=== PATIENT | female | born 1945 | race Caucasian/White ===

== ENCOUNTER 2016-08-23 08:15 | Day surgery (SDC) | payer MEDICARE, OTHER ==
[~2016-08-23] VITALS: Ht 157.5 cm; Wt 73.6 kg
[2016-08-23 09:20] VITALS: Ht 157.5 cm; Wt 73.6 kg
[2016-08-23] MEDS ORDERED: GLIP5TAB13 PO (09:29)
[2016-08-23] MEDS ORDERED: ATOR10TA65 PO (09:29)
[2016-08-23 09:30] VITALS: BP 173/81; PULSE 82; RESP 14
[2016-08-23] MEDS ORDERED: PROPOFOL 20 ML ONE (09:38)
[2016-08-23] MEDS ORDERED: LIDOCAINE 2% (SDV) 5 ML INJ ONE (09:39)
[2016-08-23 10:28] VITALS: BP 154/80; PULSE 75; RESP 24
--- NOTE | 2016-08-23 12:05 | GILP ---
DATE OF PROCEDURE: 08/23/2016 NAME OF PROCEDURE: Colonoscopy. SURGEON: Shady Jean-Baptiste MD PREOPERATIVE DIAGNOSIS: Screening colonoscopy. POSTOPERATIVE DIAGNOSES: 1. Colonoscopy all the way to the cecum. 2. Internal hemorrhoids. 3. No colon neoplasm was identified. INDICATION FOR THE PROCEDURE: Ms. Luz Maria Yuen is a 70-year-old female patient who was scheduled for screening colonoscopy. The procedure and possible complications were well explained to the patient. The patient understood and consented to the procedure. DESCRIPTION OF PROCEDURE: Under the influence of anesthesia, the colonoscope was carefully introduc ed in the rectum and under direct vision, it was advanced all the way to the cecum. FINDINGS: The patient had internal hemorrhoids. The patient also had diverticulosis of the colon. No colon neoplasm was identified. She tolerated the procedure very well and there was no complication from the procedure. At the end of the procedure, she was awake with stable vital signs and she was discharged home to the care of h er family. IMPRESSION: 1. Colonoscopy all the way to the cecum. 2. Diverticulosis of the colon. 3. Internal hemorrhoids. 4. No colon neoplasm was identified. PLAN: The patient will not need another screening colonoscopy. Dictated By: SHADY CA/KRISTI Conf#: [id number] DID#: [id number]
== END 2016-08-23 14:12 | disposition home or self-care (01) ==
LOC: GIL 08:15
PROVIDERS: ATTEND Internal Medicine Gastroenterology
DX: Z12.11 Encounter for screening for malignant neoplasm of colon (principal); K64.8 Other hemorrhoids; I10 Essential (primary) hypertension; E11.9 Type 2 diabetes mellitus without complications; E78.5 Hyperlipidemia, unspecified
CPT/HCPCS: 82962; G0121

== ENCOUNTER 2017-05-16 14:32 | Inpatient (IN) | payer OTHER, MEDICAID ==
[~2017-05-16] VITALS: Ht 157.5 cm; Wt 72.1 kg
[~2017-05-16 14:32] MED LIST: ATOR10TA65 PO; GLIP5TAB13 PO
[2017-05-16] MEDS ORDERED: FER325 PO (21:05)
[2017-05-16] MEDS ORDERED: GLIP1TAB6 PO (21:06)
[2017-05-16] MEDS ORDERED: SULF1TAB31 PO (21:06)
[2017-05-16] MEDS ORDERED: TYL500 PO (21:07)
[2017-05-16] MEDS ORDERED: INSU100I33 SC (21:16)
[2017-05-16] MEDS ORDERED: PIPER-TAZO 3.375 GM IV (PMX) 100 ML IVPB STA (21:37)
[2017-05-16] MEDS ORDERED: SOD CHLORIDE 0.9% 1,000 ML IV ONE (22:00)
[2017-05-16] MEDS ORDERED: HYDROCODONE/APAP (5/325) TAB PO ONE (22:00)
[2017-05-16] MEDS ORDERED: VANCOMYCIN 1 GM (PMX) 250 ML IVPB ONE (22:00)
[2017-05-16 22:37] LABS: ADD UMIC NO; UR ASCORBIC ACID 40 mg/dL (NEGATIVE); UR BILIRUBIN (Dip) NEGATIVE (NEGATIVE); UR BLOOD (Dip) NEGATIVE (NEGATIVE); UR CLARITY CLEAR (CLEAR); UR COLOR YELLOW (YELLOW); UR GLUCOSE (Dip) NEGATIVE (NEGATIVE); UR KETONES (Dip) NEGATIVE (NEGATIVE); UR LEUKOCYTE ESTERASE (Dip) NEGATIVE Leu/ul (NEGATIVE); UR NITRITE (Dip) NEGATIVE (NEGATIVE); UR SPECIFIC GRAVITY (Dip) 1.017 (1.003-1.030); UR TOTAL PROTEIN (Dip) NEGATIVE (NEGATIVE); UR UROBILINOGEN (Dip) NEGATIVE (NEGATIVE)
[2017-05-16 23:22] LABS: BASOPHILS % 0.5 % (0.0-2.0); EOSINOPHILS # 0.2 10^3/ul (0.0-0.5); EOSINOPHILS % 2.9 % (0.0-7.0); HEMATOCRIT 29.3 % (37.0-47.0); HEMOGLOBIN 9.5 g/dl (12.0-16.0); LYMPHOCYTES # 1.4 10^3/ul (0.8-2.9); LYMPHOCYTES % 17.7 % (15.0-51.0); MEAN CORPUSCULAR HEMOGLOBIN 26.7 pg (29.0-33.0); MEAN CORPUSCULAR HGB CONC 32.4 g/dl (32.0-37.0); MEAN CORPUSCULAR VOLUME 82.3 fl (82.0-101.0); MEAN PLATELET VOLUME 8.5 fl (7.4-10.4); MONOCYTE # 0.9 10^3/ul (0.3-0.9); MONOCYTES % 11.1 % (0.0-11.0); NEUTROPHIL # 5.4 10^3/ul (1.6-7.5); NEUTROPHILS % 67.4 % (39.0-77.0); PLATELET COUNT 407 10^3/UL (140-415); RED BLOOD COUNT 3.56 10^6/ul (4.20-5.40); RED CELL DISTRIBUTION WIDTH 16.8 % (11.5-14.5)
--- NOTE | 2017-05-16 23:27 | ERA ---
ER Documentation Chief Complaint Date/Time DATE: 05/16/17 TIME: 23:21 Chief Complaint left ankle ulcer s/p hit foot with vaccum 2wks ago HPI This 71-year-old female presents with increasing pain and redness at her left lateral ankle now moving circumferentially all around her whole left ankle and lower leg. At home she has had fevers on and off though she did not check the temperature. Primary care doctor gave her Bactrim of which the core she is Willian finished infection is still spreading. She is diabetic. Is having some serous drainage from the ulcer and some of the drainage has thicker and had a yellowish tinge to it. ROS All systems reviewed and are negative except as per history of present illness. Medications Home Meds Reported Medications Insulin Glargine,Hum.rec.anlog (Basaglar Kwikpen U-100) 100 Unit/1 Ml Insuln.pen , 15 UNIT SC DAILY 05/16/17 Acetaminophen* (Tylenol*) 500 Mg Tab, 500 MG PO QID Y for MILD PAIN LEVEL 1-3, TAB 05/16/17 Glipizide/Metformin HCl (Glipizide-Metformin 5-500 mg) 1 Each Tablet, 1 EACH PO TID, TAB 05/16/17 Sulfamethoxazole/Trimethoprim* (Bactrim Ds* Tablet) 1 Each Tablet, 1 TAB PO BID , TAB 05/16/17 Ferrous Sulfate* (Ferrous Sulfate*) 325 Mg Tabec, 325 MG PO DAILY, TAB 05/16/17 Discontinued Reported Medications Atorvastatin Calcium (Atorvastatin Calcium) 10 Mg Tablet, 10 MG PO QHS, #30 TAB 08/23/16 Glipizide* (Glipizide*) 5 Mg Tablet, 5 MG PO BID, TAB 08/23/16 Allergies Allergies: Coded Allergies: No Known Allergy (Unverified , 05/16/17) PMhx/Soc History of Surgery: Yes (hysterectomy 30yrs ago) Anesthesia Reaction: No Hx Neurological Disorder: No Hx Respiratory Disorders: No Hx Cardiac Disorders: No Hx Psychiatric Problems: No Hx Miscellaneous Medical Probl: Yes (HTN, DM) Hx Alcohol Use: No Hx Substance Use: No Hx Tobacco Use: No Smoking Status: Never smoker Physical Exam Vitals Vital Signs Date Time Temp Pulse Resp B/P Pulse Ox O2 Delivery O2 Flow Rate FiO2 05/16/17 14:37 98.1 104 20 145/68 98 Physical Exam Const: [] Mild distress Eyes: Normal Conjunctiva ENT: Normal External Ears, Nose and Mouth. Neck: Full range of motion..~ No meningismus. No JVD Resp: Clear to auscultation bilaterally Cardio: Regular rate and rhythm, no murmurs Abd: Soft, non tender, non distended. Normal bowel sounds Back: No midline or flank tenderness Ext: No cyanosis, mild bilateral edema with increased left lower extremity edema with some circumferential erythema to the lower leg mild calor. Bilateral distal pulses intact. Neur: Awake and alert and oriented 3, no focal deficits Psych: Normal Mood and Affect Results 24 hrs Laboratory Tests Test 05/16/17 21:24 05/16/17 22:30 Urine Color YELLOW Urine Clarity CLEAR Urine pH 5.0 Urine Specific [place] 1.017 Urine Ketones NEGATIVEmg/dL Urine Nitrite NEGATIVEmg/dL Urine Bilirubin NEGATIVEmg/dL Urine Urobilinogen NEGATIVEmg/dL Urine Leukocyte Esterase NEGATIVELeu/ul Urine Hemoglobin NEGATIVEmg/dL Urine Glucose NEGATIVEmg/dL Urine Total Protein NEGATIVEmg/dl White Blood Count Pending Red Blood Count Pending Hemoglobin Pending Hematocrit Pending Mean Corpuscular Volume Pending Mean Corpuscular Hemoglobin Pending Mean Corpuscular Hemoglobin Concent Pending Red Cell Distribution Width Pending Platelet Count Pending Mean Platelet Volume Pending Current Medications Medications (Trade) Dose Ordered Sig/Idania Route PRN Reason Start Time Stop Time Status Last Admin Dose Admin Vancomycin HCl 250 ml @ 125 mls/hr ONCE ONCE IVPB 05/16/17 22:00 05/16/17 23:59 05/16/17 22:56 Piperacillin Sod/ Tazobactam Sod 100 ml @ 100 mls/hr ONCE STAT IVPB 05/16/17 21:37 05/16/17 22:36 DC 05/16/17 22:01 Sodium Chloride (NS) 1,000 ml @ 1,000 mls/hr Q1H ONCE IV 05/16/17 22:00 05/16/17 22:59 DC 05/16/17 22:03 Acetaminophen/ Hydrocodone Bitart ([place] (5/325)) 1 tab ONCE ONCE PO 05/16/17 22:00 05/16/17 22:01 DC 05/16/17 22:01 Procedures/MDM Left lower extremity and diabetic patient failed outpatient treatment. She will be need to be admitted for IV antibiotics. She was given vancomycin and Zosyn as well as liter of normal saline. Normocytic anemia. Had very mild tachycardia on arrival does not have any other sepsis criteria. Was given a [place] for her pain. Departure Diagnosis: Primary Impression: Diabetic foot infection Additional Impressions: Failure of outpatient treatment Cellulitis of left lower extremity Condition: Stable JARAD GILL DO May 16, 2017 23:27
[2017-05-16 23:46] LABS: ALBUMIN 3.6 g/dl (3.3-4.9); ALBUMIN/GLOBULIN RATIO 0.83; BILIRUBIN,INDIRECT 0.1 mg/dl (0-1.1); BILIRUBIN,TOTAL 0.1 mg/dl (0.2-1.3); CALCIUM 9.1 mg/dl (8.4-10.2); CREATININE 0.94 mg/dl (0.44-1.00); POTASSIUM 4.4 mmol/L (3.5-5.1); TOTAL PROTEIN 7.9 g/dl (6.1-8.1)
[2017-05-17] MEDS ORDERED: ACETAMINOPHEN 325 MG TAB PO PRN ×2 (00:30→01:00)
[2017-05-17] MEDS ORDERED: ONDANSETRON 4 MG INJ IV PRN (00:30)
[2017-05-17] MEDS ORDERED: GLUCOSE GEL 15 GRAM TUBE BUCCAL PRN (01:00)
[2017-05-17] MEDS ORDERED: GLUCAGON 1 MG INJ IM PRN (01:00)
[2017-05-17] MEDS ORDERED: VANCOMYCIN IV PER PHARMACY XX SCH (01:00)
[2017-05-17] MEDS ORDERED: GLUCOSE GEL 15 GRAM TUBE PO PRN ×2 (01:00)
[2017-05-17] MEDS ORDERED: ZOLPIDEM 5 MG TAB PO PRN (01:00)
[2017-05-17] MEDS ORDERED: DEXTROSE 50% 50 ML SYRINGE IV PRN ×2 (01:00)
--- NOTE | 2017-05-17 01:46 | RADRPT ---
PROCEDURE: XR Left Ankle. CLINICAL INDICATION: Osteomyelitis. TECHNIQUE: AP, oblique and lateral views of the left ankle were performed. COMPARISON: None. FINDINGS: There is normal mineralization and alignment. No acute fracture or osseous lesion is identified. The joints are normal. Dystrophic calcifications in the skin over the leg suggest a vascular insufficiency. Soft tissue swe lling over the anterior and bilateral left ankle. Otherwise, the soft tissues are unremarkable. Plan tar and posterior dorsal calcaneal enthesophytes. IMPRESSION: No plain film evidence of osteomyelitis, and MRI examination may be of further use. RPTAT: UU Physician Subha Date Time Electronically viewed and signed by Physician Subha on 05/17/2017 01:46 RS/
[2017-05-17] MEDS ORDERED: ACCU-CHEK XX SCH (02:00)
[2017-05-17] MEDS: ACCU-CHEK XX SCH ×3 (02:00→21:49)
[2017-05-17 02:50] VITALS: Ht 157.5 cm; Wt 72.1 kg
[2017-05-17 03:05] VITALS: BP 159/76; RESP 18
[2017-05-17 04:00] VITALS: BP 159/76; PULSE 71; RESP 18
[2017-05-17] MEDS: HYDROCODONE/APAP (5/325) TAB PO PRN ×3 (05:25→22:55)
[2017-05-17] MEDS ORDERED: PIPER-TAZO 3.375 GM IV (PMX) 100 ML IVPB ONE (06:00)
[2017-05-17 08:00] VITALS: BP 126/57; RESP 16
[2017-05-17] MEDS ORDERED: INSULIN ASPART [NOVOLOG] 3 ML PEN SC SCH ×4 (08:00→11:30)
[2017-05-17 08:04] LABS: BASOPHIL # 0.1 10^3/ul (0.0-0.1); BASOPHILS % 0.9 % (0.0-2.0); EOSINOPHILS # 0.2 10^3/ul (0.0-0.5); EOSINOPHILS % 3.5 % (0.0-7.0); HEMATOCRIT 28.3 % (37.0-47.0); HEMOGLOBIN 9.2 g/dl (12.0-16.0); LYMPHOCYTES # 1.6 10^3/ul (0.8-2.9); LYMPHOCYTES % 23.4 % (15.0-51.0); MEAN CORPUSCULAR HEMOGLOBIN 26.6 pg (29.0-33.0); MEAN CORPUSCULAR HGB CONC 32.5 g/dl (32.0-37.0); MEAN CORPUSCULAR VOLUME 81.8 fl (82.0-101.0); MEAN PLATELET VOLUME 8.6 fl (7.4-10.4); MONOCYTE # 0.7 10^3/ul (0.3-0.9); MONOCYTES % 9.8 % (0.0-11.0); NEUTROPHIL # 4.1 10^3/ul (1.6-7.5); NEUTROPHILS % 62.1 % (39.0-77.0); PLATELET COUNT 418 10^3/UL (140-415); RED BLOOD COUNT 3.46 10^6/ul (4.20-5.40); RED CELL DISTRIBUTION WIDTH 16.9 % (11.5-14.5); WHITE BLOOD COUNT 6.6 10^3/ul (4.8-10.8)
[2017-05-17 08:27] LABS: CALCIUM 8.9 mg/dl (8.4-10.2); CHOL/HDL RATIO 4.5 RATIO; CREATININE 0.87 mg/dl (0.44-1.00); POTASSIUM 4.7 mmol/L (3.5-5.1)
[2017-05-17] MEDS: FERROUS SULFATE (EC) 325 MG TAB PO SCH (08:35)
[2017-05-17] MEDS: INSULIN ASPART [NOVOLOG] 3 ML PEN SC SCH ×6 (08:39→21:00)
[2017-05-17] MEDS: INSULIN GLARGINE [LANtus] 3 ML PEN SC SCH (08:40)
[2017-05-17] MEDS: metFORMIN 500 MG TAB PO SCH ×3 (08:42→17:22)
[2017-05-17] MEDS ORDERED: GLIPIZIDE PO SCH (09:00)
[2017-05-17] MEDS ORDERED: METFORMIN HCL PO SCH (09:00)
[2017-05-17] MEDS ORDERED: glipiZIDE 5 MG TAB PO SCH (09:00)
[2017-05-17] MEDS ORDERED: [UNRECOGNIZED DRUG - OTHER] PO SCH (09:00)
[2017-05-17] MEDS ORDERED: VANCOMYCIN 1 GM in NS 250 ML IVPB SCH (11:00)
--- NOTE | 2017-05-17 11:54 | HP ---
Date/Time of Note Date/Time of Note DATE: 05/17/17 TIME: 11:34 Assessment/Plan VTE Prophylaxis VTE Prophylaxis Intervention: LMWH Lines/Catheters IV [facility] [place] Assessment/Plan Assessment/Plan 71-year-old female: 1. Left ankle diabetic ulcer, infected, adjacent cellulitis. Rule out osteomyelitis. MRI left ankle has been done, results pending. ESR pending. Continue vancomycin, Levaquin added. Podiatry and infectious disease consult. A1c of 9.1 2. Diabetes mellitus, A1c of 9.1, patient reports that her blood sugars have been running high over the past couple of weeks with ongoing infection. Continue current regimen, pre-meal insulin has been added. Continue metformin for now. Hold glipizide per [facility] protocol. Will adjust insulin regimen as needed. 3. Hypertension, monitor blood pressure, resume outpatient medications as needed. 4. Hyperlipidemia: Check fasting lipid panel, resume statin therapy. Prophylaxis: Lovenox for DVT prophylaxis, Pepcid for GI prophylaxis Disposition: ID and podiatry consult, MRI done results pending, continue current antibiotics. HPI/ROS Admit Date/Time Admit Date/Time May 17, 2017 at 00:27 Hx of Present Illness Chief complaint: left ankle nonhealing ulcer and redness History of presenting illness: 71-year-old female with history of hypertension, hyperlipidemia, diabetes mellitus and recent acute onset of a diabetic ulcer on the left medial ankle for at least the past 2 weeks, seems to have failed Bactrim therapy as an outpatient. She presented to the emergency department with a draining ulceration on her left medial ankle area and significant erythema and cellulitic changes surrounding it. Patient reports 3 days of fevers chills and dizziness approximately 2 weeks ago , followed by acute onset of ulceration/boil on her left medial ankle, she reports that when she would walk on it it would get bigger, this went on for at least a week, she also noted erythema around the site, she saw her primary care physician who started her on Bactrim, she completed 1 week course of it. 2 days ago, the boil opened up started draining and the ulceration was not healing therefore she came to the emergency department. She has been afebrile over the past week, she stopped taking her antihypertensive and anticholesterol medication, because of her episode of dizziness before and she felt like she was taking too many medications In the emergency department, x-ray of the left ankle was done, she was started on vancomycin along with Zosyn, I have seen her this morning, MRI is ordered along with ESR. Levaquin and vancomycin for antibiotic treatment. Podiatry consult. ROS Constitutional: no complaints Eyes: no complaints Respiratory: no complaints Cardiovascular: no complaints Gastrointestinal: no complaints Musculoskeletal: swelling (Edema left lower extremity.) Skin: skin lesions (Patient has an ulceration which is covered with a dressing currently, left medial ankle. Erythema surrounds it up to lower third of her left lower extremity, ipsilateral to the nonhealing ulcer) Neurologic: no complaints Endocrine: no complaints Lymphatic: no complaints Psychological: no complaints PMH/Family/Social Past Medical History Diabetes mellitus, insulin requiring. Hypertension, stopped medications for a week now at least. Hyperlipidemia, stopped medication for week at least Past Surgical History Status post hysterectomy remotely Family History Significant Family History: no pertinent family hx Social History Alcohol Use: none Smoking Status: Never smoker Drug Use: none Exam/Review of Systems Vital Signs Vitals Vital Signs Date Time Temp Pulse Resp B/P Pulse Ox O2 Delivery O2 Flow Rate FiO2 05/17/17 08:00 97.9 72 16 126/57 97 05/17/17 04:00 Room Air Intake and Output 05/16/17 05/16/17 05/17/17 15:00 23:00 07:00 Intake Total 200 ml Balance 200 ml Exam Constitutional: alert, oriented, well developed Respiratory: clear to auscultation, normal air movement Cardiovascular: nl pulses, regular rate and rhythm Musculoskeletal: nl gait and stance, other (Patient has an ulceration which is covered with a dressing currently, left medial ankle. Erythema surrounds it up to lower third of her left lower extremity, ipsilateral to the nonhealing ulcer) , swelling (Lower extremity) Extremities: normal pulses, other (No clubbing or cyanosis) Neurological: [employer] II-XII intact, nl mental status, nl speech Labs Result Diagram: 05/17/1746 05/17/17 0646 Medications Medications Current Medications Acetaminophen (Tylenol Tab) 650 mg Q6 PRN PO FEVER GREATER THAN 100.6; Start 05/17/17 at 01:00 Acetaminophen/ Hydrocodone Bitart ([place] (5/325)) 1 tab Q6 PRN PO pain Last administered on 05/17/17 05:25; Admin Dose 1 TAB; Start 05/17/17 at 01:00 Ferrous Sulfate (Ferrous Sulfate (Ec)) 325 mg DAILY PO Last administered on 08:35; Admin Dose 325 MG; Start 05/17/17 at 09:00 Insulin Glargine (Lantus) 15 unit DAILY SC Last administered on 05/17/17 08: 40; Admin Dose 15 UNIT; Start 05/17/17 at 09:00 Diagnostic Test (Pha) (Accu-Chek) 1 ea 02 XX ; Start 05/17/17 at 02:00 Miscellaneous Information 1 ea NOTE XX ; Start 05/17/17 at 01:00 Glucose (Glutose) 15 gm Q15M PRN PO DECREASED GLUCOSE; Start 05/17/17 at 01:00 Glucose (Glutose) 22.5 gm Q15M PRN PO DECREASED GLUCOSE; Start 05/17/17 at 01: 00 Dextrose (D50w Syringe) 25 ml Q15M PRN IV DECREASED GLUCOSE; Start 05/17/17 at 01:00 Dextrose (D50w Syringe) 50 ml Q15M PRN IV DECREASED GLUCOSE; Start 05/17/17 at 01:00 Glucagon (Glucagen) 1 mg Q15M PRN IM DECREASED GLUCOSE; Start 05/17/17 at 01: 00 Glucose 15 gm 15 gm Q15M PRN BUCCAL DECREASED GLUCOSE; Start 05/17/17 at 01:00 Vancomycin HCl (Vancocin) 250 ml @ 125 mls/hr Q24H IVPB ; Start 05/17/17 at 11 :00 Influenza Virus Vaccine (Fluzone) 0.5 ml ONCE ONCE IM* ; Start 05/18/17 at 09: 00; Stop 05/18/17 at 09:01 Diagnostic Test (Pha) 1 ea 1 ea 02 XX ; Start 05/18/17 at 02:00 Levofloxacin/ Dextrose (Levaquin 750 Mg/ D5W 150 ml (Pmx)) 150 ml @ 100 mls/hr Q48H IVPB ; Start 05/17/17 at 10:45 Lactobacillus Acidophilus/ Rhamnosus (Culturelle) 1 cap BID PO ; Start at 10:30 Procedures Procedures PROCEDURE: XR Left Ankle. CLINICAL INDICATION: Osteomyelitis. TECHNIQUE: AP, oblique and lateral views of the left ankle were performed. COMPARISON: None. FINDINGS: There is normal mineralization and alignment. No acute fracture or osseous lesion is identified. The joints are normal. Dystrophic calcifications in the skin over the leg suggest a vascular insufficiency. Soft tissue swelling over the anterior and bilateral left ankle. Otherwise, the soft tissues are unremarkable. Plantar and posterior dorsal calcaneal enthesophytes. IMPRESSION: No plain film evidence of osteomyelitis, and MRI examination may be of further use. RPTAT: UU Physician Subha Date Time Electronically viewed and signed by Physician Subha on 05/17/2017 01:46 LATASHA/ IVY SHIPMAN May 17, 2017 11:45
[2017-05-17] MEDS: LEVOFLOXACIN 750MG/D5W (PMX) 150 ML IVPB SCH (12:21)
[2017-05-17] MEDS: ENOXAPARIN 40 MG/0.4 ML SYG SC SCH (12:32)
[2017-05-17] MEDS: LACTOBACILLUS RHAMNOSUS CAP PO SCH ×2 (12:33→21:45)
[2017-05-17] MEDS: FAMOTIDINE 20 MG TAB PO SCH (12:34)
[2017-05-17 14:19] VITALS: BP 119/65; RESP 16
--- NOTE | 2017-05-17 14:20 | CONS ---
DATE OF ADMISSION: 05/17/2017 DATE OF CONSULTATION: 05/17/2017 TYPE OF CONSULTATION: Infectious Disease. REASON FOR CONSULTATION: Antibiotic management. HISTORY OF PRESENT ILLNESS: Luz Maria Yuen is a 71-year-old female who comes in with left ankle diabetic ulcer infected with adjacent cellulitis. Her past problems include: 1. Adult-onset diabetes mellitus, insulin requiring. 2. Hypertension. 3. Hyperlipidemia. 4. Status post hysterectomy in the remote past. 5. Diabetic foot ulcer of the left ankle. The patient had recent acute onset of diabetic ulcer of the left medial ankle for the last 2 weeks. She failed Bactrim therapy as an outpatient. She presented to the emergency room with a draining u lceration of the left medial ankle with erythema and cellulitis. She reports that 3 days of fever, chills and dizziness two weeks ago following the acute onset of the ulceration. She noted erythema around the site. She saw her primary doctor who started her on Bactrim and she completed a 1 week c ourse. Two days ago the ulceration opened and started to drain and she came to the emergency room. She stopped taking her antihypertensives and anticholesterol medications because she had dizziness. In the emergency room, an x-ray of the left ankle was done and she was started on vancomycin and Z osyn. MRI is ordered. She is currently on vancomycin and Levaquin. An MRI is pending. There is n o plain film evidence of osteomyelitis. PAST MEDICAL HISTORY: Operations as outlined. FAMILY HISTORY: Noncontributory. SOCIAL HISTORY: She does not smoke, drink or abuse drugs. ALLERGIES: NONE TO PENICILLIN, SULFA OR FOODS. MEDICATIONS: Per chart. REVIEW OF SYSTEMS: As per HPI. PHYSICAL EXAMINATION: GENERAL: She is alert, responsive, in no acute distress. VITAL SIGNS: Stable. She is afebrile. SKIN: Without generalized rash. HEENT: Within normal limits. NECK: Supple. LYMPH NODES: None palpable. CHEST: Decreased breath sounds at the bases. HEART: Without murmur or gallop. ABDOMEN: Soft, nontender, without organosplenomegaly or masses. EXTREMITIES: As noted left ankle diabetic ulcer with surrounding adjacent cellulitis and edema of t he left lower extremity. The erythema extends up to the lower third of the lower extremity. RECTAL AND GENITAL: Deferred. NEUROLOGIC: No focal neurological abnormalities. IMPRESSION AND PLAN: The patient has cellulitis. We have to consider osteomyelitis which is pendin g. Her white count was 6.6, H and H 9.2 and 28.3, platelet count 418,000. BUN and creatinine 11/0. 87. She had blood cultures x2 and wound culture, so we will await the results of these cultures. I will dictate my findings to Dr. Gilbert. Dictated By: LA GALE MD, JD/KRISTI Conf#: [id number] DID#: [id number]
--- NOTE | 2017-05-17 15:34 | RADRPT ---
PROCEDURE: MRI OF THE LEFT ANKLE. CLINICAL INDICATION: Wound on the medial ankle with redness and warmth. TECHNIQUE: Multiple MRI images were obtained utilizing multiple pulse sequences in all three planes . Images were interpreted on high-resolution PACS system. COMPARISON: Same day radiographs FINDINGS: There is soft tissue swelling along the posterior medial aspect of the ankle with a loculated fluid collection measuring up to 3.5 cm AP by 1.3 cm transverse by 2.2 cm cranial-caudal within the subcut aneous soft tissues at the level of the distal tibial metaphysis. The fluid collection extends to th e skin surface although does not extend to the bone. There is no evidence of osteomyelitis within th e ankle. There is no acute fracture or bone marrow edema. The tibiotalar joint is intact. There are no osteoc hondral lesions of the talar dome. There is partial thickness chondral loss within the subtalar join t with mild subchondral marrow edema, subchondral cysts, and osseous spurring. Mild osseous spurring and chondral loss is also present within the calcaneocuboid, talonavicular, and naviculocuneiform j oints. There is a small amount of fluid within the sinus tarsi with edema and infiltration of fat wi thin the sinus tarsi. A small amount of fluid is also present within the subtalar joint. There are n o bony destructive changes within the ankle. The anterior talofibular, calcaneofibular, posterior talofibular, syndesmotic, and deltoid ligaments are intact. There is mild scarring of the deltoid ligament fibers which may be from prior injury. There is also scarring of the spring ligament fibers. There is moderate tendinosis of the distal posterior tibial tendon with thickening and increased sig nal of the tendon fibers distal to the medial malleolus extending to its insertion. The flexor digit orum longus and flexor hallucis longus tendons are intact. The peroneus longus and brevis tendons ar e intact with mild tendinosis of the peroneus longus. The superior peroneal retinaculum is intact. The tibialis anterior and extensor tendons are intact. There is mild to moderate thickening of the Achilles tendon with small enthesophytes within the post erior calcaneus at the tendon insertion. The plantar fascia is intact. There is a small plantar calc aneal heel spur. There is marked fatty atrophy of the abductor digiti minimi muscle. RPTAT: ZZ IMPRESSION: 1. Loculated fluid collection within the superficial subcutaneous soft tissues of the posterior medi al ankle at the level of the distal tibial metaphysis measuring up to 3.5 x 1.3 x 2.2 cm which may c orrespond with an abscess with a small adjacent skin ulcer although limited in evaluation without in travenous contrast. No sinus tract extending from the skin to the bone or evidence for osteomyelitis . 2. Inflammation of the sinus tarsi with infiltration of fat within the sinus tarsi with fluid and ed shelby. 3. 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 4. Moderate distal posterior tibial tendinosis. 5. Marked fatty atrophy of the abductor digiti minimi muscle. .Kalyani Meyer MD, Date Time Electronically viewed and signed by .Kalyani Meyer MD, on 05/17/2017 15:34 .T/
[2017-05-17 20:16] VITALS: BP 120/60; RESP 19
[2017-05-18] MEDS ORDERED: ACCU-CHEK XX SCH (02:00)
[2017-05-18 03:05] VITALS: BP 117/63; RESP 18
[2017-05-18 06:22] LABS: BASOPHIL # 0.1 10^3/ul (0.0-0.1); BASOPHILS % 0.8 % (0.0-2.0); EOSINOPHILS # 0.2 10^3/ul (0.0-0.5); EOSINOPHILS % 2.9 % (0.0-7.0); HEMOGLOBIN 9.1 g/dl (12.0-16.0); LYMPHOCYTES # 1.7 10^3/ul (0.8-2.9); LYMPHOCYTES % 23.8 % (15.0-51.0); MEAN CORPUSCULAR HEMOGLOBIN 25.8 pg (29.0-33.0); MEAN CORPUSCULAR HGB CONC 31.4 g/dl (32.0-37.0); MEAN CORPUSCULAR VOLUME 82.2 fl (82.0-101.0); MEAN PLATELET VOLUME 8.5 fl (7.4-10.4); MONOCYTE # 0.6 10^3/ul (0.3-0.9); MONOCYTES % 8.1 % (0.0-11.0); NEUTROPHIL # 4.6 10^3/ul (1.6-7.5); NEUTROPHILS % 63.7 % (39.0-77.0); PLATELET COUNT 439 10^3/UL (140-415); RED BLOOD COUNT 3.53 10^6/ul (4.20-5.40); RED CELL DISTRIBUTION WIDTH 17.1 % (11.5-14.5); WHITE BLOOD COUNT 7.2 10^3/ul (4.8-10.8)
[2017-05-18 07:19] LABS: CALCIUM 9.2 mg/dl (8.4-10.2); CREATININE 0.91 mg/dl (0.44-1.00); MAGNESIUM 1.8 mg/dl (1.7-2.5); PHOSPHORUS 3.8 mg/dl (2.5-4.9); POTASSIUM 5.2 mmol/L (3.5-5.1)
[2017-05-18] MEDS: INSULIN ASPART [NOVOLOG] 3 ML PEN SC SCH ×7 (08:00→21:00)
[2017-05-18 08:05] VITALS: BP 136/78; RESP 19
[2017-05-18] MEDS: ENOXAPARIN 40 MG/0.4 ML SYG SC SCH (08:14)
[2017-05-18] MEDS: INSULIN GLARGINE [LANtus] 3 ML PEN SC SCH (08:14)
[2017-05-18] MEDS: FAMOTIDINE 20 MG TAB PO SCH (08:16)
[2017-05-18] MEDS: LACTOBACILLUS RHAMNOSUS CAP PO SCH ×2 (08:17→22:00)
[2017-05-18] MEDS: FERROUS SULFATE (EC) 325 MG TAB PO SCH (08:17)
[2017-05-18] MEDS: metFORMIN 500 MG TAB PO SCH ×3 (08:17→17:01)
[2017-05-18] MEDS ORDERED: INFLUENZA VIRUS VACCINE 0.5 ML (DISPENSING) IM* ONE (09:00)
--- NOTE | 2017-05-18 12:04 | PN ---
Date/Time of Note Date/Time of Note DATE: 05/18/17 TIME: 11:57 Assessment/Plan VTE Prophylaxis VTE Prophylaxis Intervention: LMWH Lines/Catheters [facility]from [facility] Saline Lock Assessment/Plan Assessment/Plan 71-year-old female: 1. Left ankle diabetic ulcer, infected, adjacent cellulitis. MRI left ankle with no osteomyelitis however patient does have fluid collection/ abscess underneath the infected ulcer. Podiatry, Dr. Moseley was consulted, he is planning for bedside I&D today. Infectious disease consulted, continue current antibiotics for now while awaiting culture sensitivities Continue vancomycin, Levaquin. 2. Diabetes mellitus, A1c of 9.1, patient reports that her blood sugars have been running high over the past couple of weeks with ongoing infection. Continue current regimen, pre-meal insulin has been added. Continue metformin for now. Blood sugars controlled on current regimen. 3. Hypertension, monitor blood pressure, resume outpatient medications as needed. 4. Hyperlipidemia: Continue statin therapy. Prophylaxis: Lovenox for DVT prophylaxis, Pepcid for GI prophylaxis Disposition: Appreciate ID and podiatry recommendations, bedside I&D of left ankle ulcer with abscess today, further antibiotic adjustment per culture results. Subjective 24 Hr Interval Summary Free Text/Dictation Patient remained stable, doing well, it is noted that there is more drainage from the infected ulcer and on MRI there is area of abscess seen. Podiatry has been consulted, Dr. Moseley has seen the patient and will be doing bedside I&D today. Exam/Review of Systems Vital Signs Vitals Vital Signs Date Time Temp Pulse Resp B/P Pulse Ox O2 Delivery O2 Flow Rate FiO2 05/18/17 08:05 97.7 82 19 136/78 98 05/17/17 04:00 Room Air Intake and Output 05/17/17 05/17/17 05/18/17 15:00 23:00 07:00 Intake Total 150 ml 1530 ml 120 ml Balance 150 ml 1530 ml 120 ml Exam Constitutional: alert, oriented, well developed Respiratory: clear to auscultation, normal air movement Cardiovascular: nl pulses, regular rate and rhythm Gastrointestinal: non-tender, soft Musculoskeletal: nl gait and stance, other (Left ankle cellulitis improved, however draining fluid from a left ankle ulcer can be seen, I&D bedside today with podiatry) Extremities: normal pulses Neurological: HOGSHEAD PACKER II-XII intact, nl mental status, nl speech, nl strength Results Result Diagram: 05/18/17 0548 05/18/17 0548 Results 24 hrs Laboratory Tests Test 05/17/17 12:19 05/17/17 17:21 05/17/17 21:47 05/18/17 05:48 Bedside Glucose 156 80 81 White Blood Count 7.2 Red Blood Count 3.53 L Hemoglobin 9.1 L Hematocrit 29.0 L Mean Corpuscular Volume 82.2 Mean Corpuscular Hemoglobin 25.8 L Mean Corpuscular Hemoglobin Concent 31.4 L Red Cell Distribution Width 17.1 H Platelet Count 439 H Mean Platelet Volume 8.5 Neutrophils % 63.7 Lymphocytes % 23.8 Monocytes % 8.1 Eosinophils % 2.9 Basophils % 0.8 Nucleated Red Blood Cells % 0.0 Neutrophils # 4.6 Lymphocytes # 1.7 Monocytes # 0.6 Eosinophils # 0.2 Basophils # 0.1 Nucleated Red Blood Cells # 0.0 Sodium Level 139 Potassium Level 5.2 H Chloride Level 104 Carbon Dioxide Level 25 Anion Gap 15 Blood Urea Nitrogen 16 Creatinine 0.91 Glucose Level 180 Calcium Level 9.2 Phosphorus Level 3.8 Magnesium Level 1.8 Test 05/18/17 08:02 Bedside Glucose 135 Imaging Free Text/Dictation PROCEDURE: MRI OF THE LEFT ANKLE. CLINICAL INDICATION: Wound on the medial ankle with redness and warmth. TECHNIQUE: Multiple MRI images were obtained utilizing multiple pulse sequences in all three planes. Images were interpreted on high-resolution PACS system. COMPARISON: Same day radiographs FINDINGS: There is soft tissue swelling along the posterior medial aspect of the ankle with a loculated fluid collection measuring up to 3.5 cm AP by 1.3 cm transverse by 2.2 cm cranial-caudal within the subcutaneous soft tissues at the level of the distal tibial metaphysis. The fluid collection extends to the skin surface although does not extend to the bone. There is no evidence of osteomyelitis within the ankle. There is no acute fracture or bone marrow edema. The tibiotalar joint is intact. There are no osteochondral lesions of the talar dome. There is partial thickness chondral loss within the subtalar joint with mild subchondral marrow edema, subchondral cysts, and osseous spurring. Mild osseous spurring and chondral loss is also present within the calcaneocuboid, talonavicular, and naviculocuneiform joints. There is a small amount of fluid within the sinus tarsi with edema and infiltration of fat within the sinus tarsi. A small amount of fluid is also present within the subtalar joint. There are no bony destructive changes within the ankle. The anterior talofibular, calcaneofibular, posterior talofibular, syndesmotic, and deltoid ligaments are intact. There is mild scarring of the deltoid ligament fibers which may be from prior injury. There is also scarring of the spring ligament fibers. There is moderate tendinosis of the distal posterior tibial tendon with thickening and increased signal of the tendon fibers distal to the medial malleolus extending to its insertion. The flexor digitorum longus and flexor hallucis longus tendons are intact. The peroneus longus and brevis tendons are intact with mild tendinosis of the peroneus longus. The superior peroneal retinaculum is intact. The tibialis anterior and extensor tendons are intact. There is mild to moderate thickening of the Achilles tendon with small enthesophytes within the posterior calcaneus at the tendon insertion. The plantar fascia is intact. There is a small plantar calcaneal heel spur. There is marked fatty atrophy of the abductor digiti minimi muscle. RPTAT: ZZ IMPRESSION: 1. Loculated fluid collection within the superficial subcutaneous soft tissues of the posterior medial ankle at the level of the distal tibial metaphysis measuring up to 3.5 x 1.3 x 2.2 cm which may correspond with an abscess with a small adjacent skin ulcer although limited in evaluation without intravenous contrast. No sinus tract extending from the skin to the bone or evidence for osteomyelitis. 2. Inflammation of the sinus tarsi with infiltration of fat within the sinus tarsi with fluid and edema. 3. 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 4. Moderate distal posterior tibial tendinosis. 5. Marked fatty atrophy of the abductor digiti minimi muscle. .Kalyani Meyer MD, Date Time Electronically viewed and signed by .Kalyani Meyer MD, on 05/17/2017 15:34 Medications Medications Current Medications Acetaminophen (Tylenol Tab) 650 mg Q6 PRN PO FEVER GREATER THAN 100.6; Start 05/17/17 at 01:00 Acetaminophen/ Hydrocodone Bitart ([place] (5/325)) 1 tab Q6 PRN PO pain Last administered on 05/17/17 22:55; Admin Dose 1 TAB; Start 05/17/17 at 01:00 Ferrous Sulfate (Ferrous Sulfate (Ec)) 325 mg DAILY PO Last administered on 08:17; Admin Dose 325 MG; Start 05/17/17 at 09:00 Insulin Glargine (Lantus) 15 unit DAILY SC Last administered on 05/18/17 08: 14; Admin Dose 15 UNIT; Start 05/17/17 at 09:00 Diagnostic Test (Pha) (Accu-Chek) 1 ea 02 XX ; Start 05/17/17 at 02:00 Miscellaneous Information 1 ea NOTE XX ; Start 05/17/17 at 01:00 Glucose (Glutose) 15 gm Q15M PRN PO DECREASED GLUCOSE; Start 05/17/17 at 01:00 Glucose (Glutose) 22.5 gm Q15M PRN PO DECREASED GLUCOSE; Start 05/17/17 at 01: 00 Dextrose (D50w Syringe) 25 ml Q15M PRN IV DECREASED GLUCOSE; Start 05/17/17 at 01:00 Dextrose (D50w Syringe) 50 ml Q15M PRN IV DECREASED GLUCOSE; Start 05/17/17 at 01:00 Glucagon (Glucagen) 1 mg Q15M PRN IM DECREASED GLUCOSE; Start 05/17/17 at 01: 00 Glucose (Glutose) 15 gm Q15M PRN BUCCAL DECREASED GLUCOSE; Start 05/17/17 at 01:00 Diagnostic Test (Pha) 1 ea 1 ea 02 XX ; Start 05/18/17 at 02:00 Levofloxacin/ Dextrose (Levaquin 750 Mg/ D5W 150 ml (Pmx)) 150 ml @ 100 mls/hr Q48H IVPB Last administered on 05/17/17 12:21; Admin Dose 100 MLS/HR; Start 05/17/17 at 10:45 Lactobacillus Acidophilus/ Rhamnosus (Culturelle) 1 cap BID PO Last administered on 05/18/17 08:17; Admin Dose 1 CAP; Start 05/17/17 at 10:30 Enoxaparin Sodium (Lovenox) 40 mg DAILY SC Last administered on 05/18/17 08: 14; Admin Dose 40 MG; Start 05/17/17 at 12:30 Famotidine (Pepcid) 20 mg DAILY PO Last administered on 05/18/17 08:16; Admin Dose 20 MG; Start 05/17/17 at 12:30 Sodium Hypochlorite ([place] (Dilute 1/40%)) 1 applic BID IRR ; Start 05/18/17 at 09:00 Silver Sulfadiazine 1 applic 1 applic BID TOP ; Start 05/18/17 at 09:00 Vancomycin HCl (Vancocin) 250 ml @ 125 mls/hr Q24H IVPB ; Start 05/18/17 at 14 :00 Miscellaneous Information (*Rx Drug Level Order Reminder*) 1 ONCE ONCE XX ; Start 05/19/17 at 13:00; Stop 05/19/17 at 13:01 IVY SHIPMAN May 18, 2017 12:04
[2017-05-18] MEDS: HYDROCODONE/APAP (5/325) TAB PO PRN ×2 (12:11→22:00)
[2017-05-18] MEDS: SILVER SULFADIAZINE 1% 25 GM CR TOP SCH ×2 (12:12→22:17)
[2017-05-18] MEDS: SODIUM HYPOCHLORITE 1/40% 1L IRRIG IRR SCH ×2 (12:15→22:16)
[2017-05-18 14:14] VITALS: BP 125/60; RESP 18
[2017-05-18] MEDS: VANCOMYCIN 1 GM in NS 250 ML IVPB SCH (15:50)
[2017-05-18 20:00] VITALS: BP 147/67; RESP 18
[2017-05-18] MEDS: ACCU-CHEK XX SCH ×2 (23:56)
[2017-05-19 02:00] VITALS: BP 133/68; RESP 18
[2017-05-19 07:28] LABS: BASOPHILS % 0.8 % (0.0-2.0); EOSINOPHILS # 0.2 10^3/ul (0.0-0.5); EOSINOPHILS % 3.4 % (0.0-7.0); HEMATOCRIT 29.8 % (37.0-47.0); HEMOGLOBIN 9.6 g/dl (12.0-16.0); LYMPHOCYTES # 1.6 10^3/ul (0.8-2.9); LYMPHOCYTES % 30.8 % (15.0-51.0); MEAN CORPUSCULAR HEMOGLOBIN 26.9 pg (29.0-33.0); MEAN CORPUSCULAR HGB CONC 32.2 g/dl (32.0-37.0); MEAN CORPUSCULAR VOLUME 83.5 fl (82.0-101.0); MEAN PLATELET VOLUME 8.2 fl (7.4-10.4); MONOCYTE # 0.5 10^3/ul (0.3-0.9); NEUTROPHIL # 2.9 10^3/ul (1.6-7.5); NEUTROPHILS % 54.6 % (39.0-77.0); PLATELET COUNT 475 10^3/UL (140-415); RED BLOOD COUNT 3.57 10^6/ul (4.20-5.40); RED CELL DISTRIBUTION WIDTH 16.6 % (11.5-14.5); WHITE BLOOD COUNT 5.3 10^3/ul (4.8-10.8)
[2017-05-19] MEDS: HYDROCODONE/APAP (5/325) TAB PO PRN ×3 (07:37→21:24)
[2017-05-19] MEDS: INSULIN ASPART [NOVOLOG] 3 ML PEN SC SCH ×7 (07:52→21:00)
[2017-05-19] MEDS: INSULIN GLARGINE [LANtus] 3 ML PEN SC SCH (07:54)
[2017-05-19 08:01] LABS: CALCIUM 9.2 mg/dl (8.4-10.2); CREATININE 0.86 mg/dl (0.44-1.00); POTASSIUM 5.7 mmol/L (3.5-5.1)
[2017-05-19 08:04] VITALS: BP 134/69; RESP 18
[2017-05-19] MEDS: metFORMIN 500 MG TAB PO SCH ×3 (08:18→17:57)
[2017-05-19] MEDS: ENOXAPARIN 40 MG/0.4 ML SYG SC SCH (08:18)
[2017-05-19] MEDS: LACTOBACILLUS RHAMNOSUS CAP PO SCH ×2 (08:18→21:21)
[2017-05-19] MEDS: FAMOTIDINE 20 MG TAB PO SCH (08:18)
[2017-05-19] MEDS: FERROUS SULFATE (EC) 325 MG TAB PO SCH (08:18)
[2017-05-19] MEDS: SILVER SULFADIAZINE 1% 25 GM CR TOP SCH ×2 (08:19→21:21)
[2017-05-19] MEDS: SODIUM HYPOCHLORITE 1/40% 1L IRRIG IRR SCH ×2 (08:19→21:21)
[2017-05-19] MEDS ORDERED: LIDOCAINE 1% (MPF) 30 ML INJ INJ STA (09:25)
[2017-05-19] MEDS: morphine 2 MG INJ IV PRN ×2 (10:51→17:57)
[2017-05-19] MEDS: LEVOFLOXACIN 750MG/D5W (PMX) 150 ML IVPB SCH (12:28)
[2017-05-19 14:23] VITALS: BP 125/72; RESP 16
[2017-05-19] MEDS: VANCOMYCIN 1 GM in NS 250 ML IVPB SCH (14:38)
[2017-05-19 20:23] VITALS: BP 134/75; RESP 18
[2017-05-19] MEDS: ACCU-CHEK XX SCH (21:21)
--- NOTE | 2017-05-19 22:20 | CONS ---
Date/Time of Note Date/Time of Note DATE: 05/19/17 TIME: 22:16 Consult Date/Type/Reason Admit Date/Time May 17, 2017 at 00:27 Initial Consult Date Type of Consultation: ID Objective Vital Signs Date Time Temp Pulse Resp B/P Pulse Ox O2 Delivery O2 Flow Rate FiO2 05/19/17 20:23 98.5 84 18 134/75 96 05/17/17 04:00 Room Air Intake and Output 05/18/17 05/18/17 05/19/17 15:00 23:00 07:00 Intake Total 1250 ml 240 ml Balance 1250 ml 240 ml Results/Medications Result Diagram: 05/19/17 0605 05/19/17 0605 Results 24 hrs Laboratory Tests Test 05/19/17 06:05 05/19/17 07:40 05/19/17 12:00 05/19/17 13:01 White Blood Count 5.3 # Red Blood Count 3.57 L Hemoglobin 9.6 L Hematocrit 29.8 L Mean Corpuscular Volume 83.5 Mean Corpuscular Hemoglobin 26.9 L Mean Corpuscular Hemoglobin Concent 32.2 Red Cell Distribution Width 16.6 H Platelet Count 475 H Mean Platelet Volume 8.2 Neutrophils % 54.6 Lymphocytes % 30.8 Monocytes % 10.0 Eosinophils % 3.4 Basophils % 0.8 Nucleated Red Blood Cells % 0.0 Neutrophils # 2.9 Lymphocytes # 1.6 Monocytes # 0.5 Eosinophils # 0.2 Basophils # 0.0 Nucleated Red Blood Cells # 0.0 Sodium Level 139 Potassium Level 5.7 H Chloride Level 106 Carbon Dioxide Level 25 Anion Gap 14 Blood Urea Nitrogen 17 Creatinine 0.86 Glucose Level 195 Calcium Level 9.2 Magnesium Level 1.8 Bedside Glucose 162 154 Vancomycin Level Trough 8.5 L Test 05/19/17 17:25 05/19/17 21:20 Bedside Glucose 120 141 Medications Current Medications Acetaminophen (Tylenol Tab) 650 mg Q6 PRN PO FEVER GREATER THAN 100.6; Start 05/17/17 at 01:00 Acetaminophen/ Hydrocodone Bitart ([place] (5/325)) 1 tab Q6 PRN PO pain Last administered on 05/19/17 21:24; Admin Dose 1 TAB; Start 05/17/17 at 01:00 Ferrous Sulfate (Ferrous Sulfate (Ec)) 325 mg DAILY PO Last administered on 08:18; Admin Dose 325 MG; Start 05/17/17 at 09:00 Insulin Glargine (Lantus) 15 unit DAILY SC Last administered on 05/19/17 07: 54; Admin Dose 15 UNIT; Start 05/17/17 at 09:00 Diagnostic Test (Pha) (Accu-Chek) 1 ea 02 XX ; Start 05/17/17 at 02:00 Miscellaneous Information 1 ea NOTE XX ; Start 05/17/17 at 01:00 Glucose (Glutose) 15 gm Q15M PRN PO DECREASED GLUCOSE; Start 05/17/17 at 01:00 Glucose (Glutose) 22.5 gm Q15M PRN PO DECREASED GLUCOSE; Start 05/17/17 at 01: 00 Dextrose (D50w Syringe) 25 ml Q15M PRN IV DECREASED GLUCOSE; Start 05/17/17 at 01:00 Dextrose (D50w Syringe) 50 ml Q15M PRN IV DECREASED GLUCOSE; Start 05/17/17 at 01:00 Glucagon (Glucagen) 1 mg Q15M PRN IM DECREASED GLUCOSE; Start 05/17/17 at 01: 00 Glucose 15 gm 15 gm Q15M PRN BUCCAL DECREASED GLUCOSE; Start 05/17/17 at 01:00 Levofloxacin/ Dextrose (Levaquin 750 Mg/ D5W 150 ml (Pmx)) 150 ml @ 100 mls/hr Q48H IVPB Last administered on 05/19/17 12:28; Admin Dose 100 MLS/HR; Start 05/17/17 at 10:45 Lactobacillus Acidophilus/ Rhamnosus (Culturelle) 1 cap BID PO Last administered on 05/19/17 21:21; Admin Dose 1 CAP; Start 05/17/17 at 10:30 Enoxaparin Sodium (Lovenox) 40 mg DAILY SC Last administered on 05/19/17 08: 18; Admin Dose 40 MG; Start 05/17/17 at 12:30 Famotidine (Pepcid) 20 mg DAILY PO Last administered on 05/19/17 08:18; Admin Dose 20 MG; Start 05/17/17 at 12:30 Sodium Hypochlorite (Dakin'S (Dilute 1/40%)) 1 applic BID IRR Last administered on 05/19/17 21:21; Admin Dose 1 APPLIC; Start 05/18/17 at 09:00 Silver Sulfadiazine (Thermazene 1% 25 Gm) 1 applic BID TOP Last administered on 05/19/17 21:21; Admin Dose 1 APPLIC; Start 05/18/17 at 09:00 Morphine Sulfate 2 mg 2 mg Q4H PRN IV SEVERE PAIN LEVEL 7-10 Last administered on 05/19/17 17:57; Admin Dose 2 MG; Start 05/18/17 at 12:00 Vancomycin HCl/ Sodium Chloride (Vancocin/NS) 250 ml @ 83.333 mls/ hr Q24H IVPB ; Start 05/20/17 at 14:00 Assessment/Plan Chief Complaint/Hosp Course Alert, feels good, no fevers Micro: cx + Strep Abx: Heather Polo PHYSICAL EXAMINATION: GENERAL: Alert, responsive, in no acute distress. SKIN: Without generalized rash. HEENT: Within normal limits. NECK: Supple. LYMPH NODES: None palpable. CHEST: Decreased breath sounds at the bases. HEART: Without murmur or gallop. ABDOMEN: Soft, nontender, +BT EXTREMITIES: LLE dsg intact NEUROLOGIC: No focal neurological abnormalities. Assessment: 1. L DFU, s/p i&d==> no OM per MRI 2. DM 3. HTN Plan: Stable, change Levaquin to Rocephin, await for final cx's, f/u podiatry rec-s DW pt/family at bedside Problems: MAE ALTMAN NP May 19, 2017 22:20
[2017-05-20] MEDS: CEFTRIAXONE 1 GM/50 ML (PMX) 50 ML IVPB SCH ×2 (00:11→22:10)
[2017-05-20 02:18] VITALS: BP 123/75; RESP 18
--- NOTE | 2017-05-20 02:18 | OPR ---
DATE OF OPERATION: 05/19/2017 SURGEON: Anmol Moseley DPM ETCH OPERATOR SEMICONDUCTOR WAFERS: None. PREOPERATIVE DIAGNOSES: 1. Left ankle abscess. 2. Left ankle lower extremity cellulitis. 3. Edema. 4. Pain, left ankle. 5. Diabetes type 2, on insulin. POSTOPERATIVE DIAGNOSES: 1. Left ankle abscess. 2. Left ankle lower extremity cellulitis. 3. Edema. 4. Pain, left ankle. 5. Diabetes type 2, on insulin. OPERATION: Left ankle incision and drainage with irrigation. PATHOLOGY: Wound cultures. HEMOSTASIS: Compression. ESTIMATED BLOOD LOSS: 5 to 10 mL. COMPLICATIONS: None. INDICATION FOR PROCEDURE: A 71-year-old female with ulceration, cellulitis, the abscess failed outp atient treatment. Currently on Levaquin and vancomycin. Preliminary cultures, Streptococcus agalac tiae, has tissue necrosis surrounding the ulceration with the presence of purulence. Consent obtain ed. PROCEDURE IN DETAIL: The patient seen at the bedside. The surrounding skin was anesthetized with l idocaine 1% plain and was given 2 mg of morphine. At this time, using a metal probe, was used to ex plore the depth of the wound. Hemostat was used to spread open the tunneling wound and purulence ex pressed. Cultures obtained. SMA 11 blade was used to incise the tunneling cavity and multiple nodu les of fatty necrosis were evacuated. The wound was irrigated with saline and Betadine soaked gauze was used to open and pack the ulceration which had been opened and had a depth of approximately 4 c m. The patient tolerated the procedure well. POSTOPERATIVE PLAN: Recommend continue daily dressings and will follow up on current culture result s. Recommend discharge planning and anticipate need for antibiotics likely for 1 to 2 weeks. Dictated By: ANMOL MIR/KRISTI Conf#: [id number] DID#: [id number]
--- NOTE | 2017-05-20 02:23 | CONS ---
DATE OF ADMISSION: 05/17/2017 DATE OF CONSULTATION: 05/18/2017 REASON FOR CONSULTATION: Left ankle cellulitis, abscess. HISTORY OF PRESENT ILLNESS: This is a 76-year-old female with admission for infection to left lower extremity, presence of abscess, and patient had x-rays and MRI, which revealed no evidence of osteo myelitis, but has abscess of the posteromedial ankle, measuring up to 3.5 x 3.3 x 2.2 cm. She has f zara [facility] as an outpatient, currently on vancomycin and Levaquin. PAST MEDICAL HISTORY: Diabetes type 2, insulin-dependent, hypertension, hyperlipidemia. PAST SURGICAL HISTORY: Hysterectomy. SOCIAL HISTORY: Denies any smoking, alcohol, or illicit drug use. PHYSICAL EXAMINATION: VITAL SIGNS: Temperature 98.2, pulse 74, respiratory rate 18, blood pressure 134/69, pulse oximetry is 98% on room air. GENERAL: The patient alert and oriented, no acute distress. LUNGS: Regular respiration. EXTREMITIES: Edema, erythema, left medial ankle. There is a wound present with skin indurated to t he periphery. There is purulent drainage, tenderness with palpation. 2+ DP, PT pulse. No instabil ity of the ankle or tibia. LABORATORIES: WBC 5.3, hemoglobin 9.6, hematocrit 29.8, platelets 475. Sed rate is 55. Sodium 139 , potassium 5.7, chloride 106, CO2 of 25, BUN 17, creatinine 0.86. Ankle MRI of the posteromedial ankle: Abscess, 3.5 x 1.3 x 2.2 cm. X-ray: No plain film evidence of osteomyelitis. ASSESSMENT: 1. Left lower extremity cellulitis. 2. Left ankle abscess. 3. Diabetic ankle ulceration. 4. Pain, left lower extremity. 5. Edema. PLAN: The patient seen and evaluated. Cultures obtained. Preliminary Streptococcus agalactiae. B lood cultures are no growth. PLAN: Incision and drainage; can perform at bedside. Obtain consent. Patient amenable. The patie nt seen by ID, on vancomycin and Levaquin. Further recommendations pending culture results. Dictated By: ANMOL MIR/KRISTI Conf#: [id number] DID#: [id number]
[2017-05-20] MEDS: HYDROCODONE/APAP (5/325) TAB PO PRN ×3 (04:53→18:11)
[2017-05-20] MEDS: INSULIN ASPART [NOVOLOG] 3 ML PEN SC SCH ×7 (07:59→20:52)
[2017-05-20] MEDS: INSULIN GLARGINE [LANtus] 3 ML PEN SC SCH (08:00)
[2017-05-20] MEDS: FAMOTIDINE 20 MG TAB PO SCH (08:03)
[2017-05-20] MEDS: LACTOBACILLUS RHAMNOSUS CAP PO SCH ×2 (08:03→20:52)
[2017-05-20] MEDS: ENOXAPARIN 40 MG/0.4 ML SYG SC SCH (08:03)
[2017-05-20] MEDS: FERROUS SULFATE (EC) 325 MG TAB PO SCH (08:03)
[2017-05-20 08:17] VITALS: BP 142/72; RESP 18
[2017-05-20] MEDS: SODIUM HYPOCHLORITE 1/40% 1L IRRIG IRR SCH ×2 (09:00→20:52)
[2017-05-20] MEDS: SILVER SULFADIAZINE 1% 25 GM CR TOP SCH ×2 (09:00→20:52)
[2017-05-20] MEDS: metFORMIN 500 MG TAB PO SCH ×3 (09:00→18:11)
[2017-05-20] MEDS: morphine 2 MG INJ IV PRN (11:55)
--- NOTE | 2017-05-20 13:21 | PN ---
Date/Time of Note Date/Time of Note DATE: 05/19/17 TIME: 13:15 Assessment/Plan VTE Prophylaxis VTE Prophylaxis Intervention: LMWH Lines/Catheters IV [facility] (from [facility] Saline Lock Assessment/Plan Assessment/Plan [facility] 1. 71-year-old woman with a left ankle diabetic ulcer and deep cutaneous abscess , now s/p I&D this morning by Dr. Cristino Moseley. No osteomyelitis on plain films or MRI. Tissue culture showing Strep agalactiae. * Sensitivities pending * Continue vancomycin and ceftriaxone 2. Diabetes mellitus, with elevated HgbA1c of 9.1%. Likely worsened by infection. * Close monitoring on Accuchecks qAC and qHS 3. Hypertension, well-controlled now. 4. Hyperlipidemia, with fasting lipid panel showed normal-range total cholesterol with only mildly elevated triglycerides. 5. Prophylaxis: Lovenox for DVT prophylaxis, Pepcid for GI prophylaxis 6. Disposition: ID and podiatry consult, MRI done results pending, continue current antibiotics. Lazaro Abraham MD PhD [phone] Subjective 24 Hr Interval Summary Free Text/Dictation Feeling quite well. Only mild discomfort of the left ankle at the site of her surgery this morning. No nausea, chest discomfort, headache or dyspnea. Exam/Review of Systems Vital Signs Vitals Vital Signs Date Time Temp Pulse Resp B/P Pulse Ox O2 Delivery O2 Flow Rate FiO2 05/20/17 08:17 98.1 75 18 142/72 97 05/17/17 04:00 Room Air Intake and Output 05/19/17 05/19/17 05/20/17 15:00 23:00 07:00 Intake Total 150 ml 1450 ml 290 ml Balance 150 ml 1450 ml 290 ml Exam Constitutional: alert, oriented, well developed Psych: nl mood/affect, no complaints Head: atraumatic, normocephalic Eyes: EOMI, PERRL, nl conjunctiva, nl sclera ENMT: mucosa pink and moist Neck: non-tender, supple, No bruits, No jvd, No masses, No nuchal rigidity, No thyromegaly Respiratory: clear to auscultation, normal air movement, No congested cough, No crackles/rales, No diminished breath sounds, No intercostal retraction, No labored breathing, No wheezing Cardiovascular: nl pulses, regular rate and rhythm, No bruits, No diastolic murmur, No edema, No gallop, No irregular rhythm, No jugular venous distention (JVD), No murmurs/extra sounds, No rub, No systolic murmur Gastrointestinal: bowel sounds, nl liver, spleen, non-tender, soft, No ascites, No distended, No firm, No hepatomegaly, No mass, No rebound or guarding, No splenomegaly Genitourinary - Female: No CVA tenderness Musculoskeletal: muscle tone, nl extremities to inspection, range of motion, No joint tenderness, No muscle weakness, No spine non-tender, No swelling Extremities: normal pulses, other (Left ankle bandaged. Intact sensation and strength distally, without pain on movement of the left ankle.), No calf tenderness, No clubbing, No cyanosis, No edema, No palpable cord, No pitting pedal edema, No tenderness Neurological: JETTING MACHINE OPERATOR II-XII intact, nl mental status, nl speech, nl strength Skin: nl turgor Lymph: nl lymph nodes Results Result Diagram: 05/19/1760405/19/17604 Results 24 hrs Laboratory Tests Test 05/19/17 17:25 05/19/17 21:20 05/20/17 07:56 05/20/17 11:57 Bedside Glucose 120 141 149 155 Medications Medications Current Medications Acetaminophen (Tylenol Tab) 650 mg Q6 PRN PO FEVER GREATER THAN 100.6; Start 05/17/17 at 01:00 Acetaminophen/ Hydrocodone Bitart ([place] (5/325)) 1 tab Q6 PRN PO pain Last administered on 05/20/17 12:06; Admin Dose 1 TAB; Start 05/17/17 at 01:00 Ferrous Sulfate (Ferrous Sulfate (Ec)) 325 mg DAILY PO Last administered on 08:03; Admin Dose 325 MG; Start 05/17/17 at 09:00 Insulin Glargine (Lantus) 15 unit DAILY SC Last administered on 05/20/17 08: 00; Admin Dose 15 UNIT; Start 05/17/17 at 09:00 Diagnostic Test (Pha) (Accu-Chek) 1 ea 02 XX ; Start 05/17/17 at 02:00 Miscellaneous Information 1 ea NOTE XX ; Start 05/17/17 at 01:00 Glucose (Glutose) 15 gm Q15M PRN PO DECREASED GLUCOSE; Start 05/17/17 at 01:00 Glucose (Glutose) 22.5 gm Q15M PRN PO DECREASED GLUCOSE; Start 05/17/17 at 01: 00 Dextrose (D50w Syringe) 25 ml Q15M PRN IV DECREASED GLUCOSE; Start 05/17/17 at 01:00 Dextrose (D50w Syringe) 50 ml Q15M PRN IV DECREASED GLUCOSE; Start 05/17/17 at 01:00 Glucagon (Glucagen) 1 mg Q15M PRN IM DECREASED GLUCOSE; Start 05/17/17 at 01: 00 Glucose (Glutose) 15 gm Q15M PRN BUCCAL DECREASED GLUCOSE; Start 05/17/17 at 01:00 Lactobacillus Acidophilus/ Rhamnosus (Culturelle) 1 cap BID PO Last administered on 05/20/17 08:03; Admin Dose 1 CAP; Start 05/17/17 at 10:30 Enoxaparin Sodium (Lovenox) 40 mg DAILY SC Last administered on 05/20/17 08: 03; Admin Dose 40 MG; Start 05/17/17 at 12:30 Famotidine (Pepcid) 20 mg DAILY PO Last administered on 05/20/17 08:03; Admin Dose 20 MG; Start 05/17/17 at 12:30 Sodium Hypochlorite (Dakin'S (Dilute 1/40%)) 1 applic BID IRR Last administered on 05/19/17 21:21; Admin Dose 1 APPLIC; Start 05/18/17 at 09:00 Silver Sulfadiazine (Thermazene 1% 25 Gm) 1 applic BID TOP Last administered on 05/19/17 21:21; Admin Dose 1 APPLIC; Start 05/18/17 at 09:00 Morphine Sulfate 2 mg 2 mg Q4H PRN IV SEVERE PAIN LEVEL 7-10 Last administered on 05/19/17 17:57; Admin Dose 2 MG; Start 05/18/17 at 12:00 Vancomycin HCl 1.5 gm/Sodium Chloride 250 ml @ 83.333 mls/ hr Q24H IVPB ; Start 05/20/17 at 14:00 Ceftriaxone Sodium (Rocephin) 50 ml @ 100 mls/hr Q24H IVPB Last administered on 05/20/17 00:11; Admin Dose 100 MLS/HR; Start 05/19/17 at 22:30 CELESTINA ABRAHAM M.D. May 20, 2017 13:21
[2017-05-20] MEDS ORDERED: VANCOMYCIN 1.5 GM in SOD CHLORIDE 0.9% 250 ML IVPB SCH (14:00)
--- NOTE | 2017-05-20 16:05 | CONS ---
Date/Time of Note Date/Time of Note DATE: 05/20/17 TIME: 15:54 Assessment/Plan Assessment/Plan Chief Complaint/Hosp Course Assessment/Plan Chief Complaint/Hosp Course No Acute Events Overnight. Alert. Awake. No Acute Distress. Vital Signs: T-98.1 BP- 142/72 BP- 142/95 RR-18 HR- 75 O2Sat- 97% Micro: cx + Strep Abx: Ceftriaxone. Vancomycin. PHYSICAL EXAMINATION: GENERAL: Alert, responsive, in no acute distress. SKIN: Without generalized rash. HEENT: Within normal limits. NECK: Supple. LYMPH NODES: None palpable. CHEST: Decreased breath sounds at the bases. HEART: Without murmur or gallop. ABDOMEN: Soft, nontender, +BT EXTREMITIES: LLE dsg intact NEUROLOGIC: No focal neurological abnormalities. Assessment: 1. L DFU, s/p i&d==> no OM per MRI 2. DM 3. HTN Plan: Continue present medical management. Follow Podiatry recommendations. Discharge on Amoxicillin and Doxycycline for 2 weeks. DW patient. Problems: Consultation Date/Type/Reason Admit Date/Time May 17, 2017 at 00:27 Initial Consult Date Type of Consultation: ID Exam/Review of Systems Vital Signs Vitals Vital Signs Date Time Temp Pulse Resp B/P Pulse Ox O2 Delivery O2 Flow Rate FiO2 05/20/17 08:17 98.1 75 18 142/72 97 05/17/17 04:00 Room Air Intake and Output 05/19/17 05/19/17 05/20/17 15:00 23:00 07:00 Intake Total 150 ml 1450 ml 290 ml Balance 150 ml 1450 ml 290 ml Results Result Diagram: 05/19/17 0605 05/19/17 0605 Results 24 hrs Laboratory Tests Test 05/19/17 17:25 05/19/17 21:20 05/20/17 07:56 05/20/17 11:57 Bedside Glucose 120 141 149 155 Medications Medications Current Medications Acetaminophen (Tylenol Tab) 650 mg Q6 PRN PO FEVER GREATER THAN 100.6; Start 05/17/17 at 01:00 Acetaminophen/ Hydrocodone Bitart ([place] (5/325)) 1 tab Q6 PRN PO pain Last administered on 05/20/17t 12:06; Admin Dose 1 TAB; Start 05/17/17 at 01:00 Ferrous Sulfate (Ferrous Sulfate (Ec)) 325 mg DAILY PO Last administered on 08:03; Admin Dose 325 MG; Start 05/17/17 at 09:00 Insulin Glargine (Lantus) 15 unit DAILY SC Last administered on 05/20/17 08: 00; Admin Dose 15 UNIT; Start 05/17/17 at 09:00 Diagnostic Test (Pha) (Accu-Chek) 1 ea 02 XX ; Start 05/17/17 at 02:00 Miscellaneous Information 1 ea NOTE XX ; Start 05/17/17 at 01:00 Glucose (Glutose) 15 gm Q15M PRN PO DECREASED GLUCOSE; Start 05/17/17 at 01:00 Glucose (Glutose) 22.5 gm Q15M PRN PO DECREASED GLUCOSE; Start 05/17/17 at 01: 00 Dextrose (D50w Syringe) 25 ml Q15M PRN IV DECREASED GLUCOSE; Start 05/17/17 at 01:00 Dextrose (D50w Syringe) 50 ml Q15M PRN IV DECREASED GLUCOSE; Start 05/17/17 at 01:00 Glucagon (Glucagen) 1 mg Q15M PRN IM DECREASED GLUCOSE; Start 05/17/17 at 01: 00 Glucose (Glutose) 15 gm Q15M PRN BUCCAL DECREASED GLUCOSE; Start 05/17/17 at 01:00 Lactobacillus Acidophilus/ Rhamnosus (Culturelle) 1 cap BID PO Last administered on 05/20/17 08:03; Admin Dose 1 CAP; Start 05/17/17 at 10:30 Enoxaparin Sodium (Lovenox) 40 mg DAILY SC Last administered on 05/20/17 08: 03; Admin Dose 40 MG; Start 05/17/17 at 12:30 Famotidine (Pepcid) 20 mg DAILY PO Last administered on 05/20/17 08:03; Admin Dose 20 MG; Start 05/17/17 at 12:30 Sodium Hypochlorite (Dakin'S (Dilute 1/40%)) 1 applic BID IRR Last administered on 05/19/17 21:21; Admin Dose 1 APPLIC; Start 05/18/17 at 09:00 Silver Sulfadiazine (Thermazene 1% 25 Gm) 1 applic BID TOP Last administered on 05/19/17 21:21; Admin Dose 1 APPLIC; Start 05/18/17 at 09:00 Morphine Sulfate 2 mg 2 mg Q4H PRN IV SEVERE PAIN LEVEL 7-10 Last administered on 05/19/17 17:57; Admin Dose 2 MG; Start 05/18/17 at 12:00 Vancomycin HCl 1.5 gm/Sodium Chloride 250 ml @ 83.333 mls/ hr Q24H IVPB Last administered on 05/20/17 13:40; Admin Dose 83.333 MLS/HR; Start 05/20/17 at 14:00 Ceftriaxone Sodium (Rocephin) 50 ml @ 100 mls/hr Q24H IVPB Last administered on 05/20/17 00:11; Admin Dose 100 MLS/HR; Start 05/19/17 at 22:30 ANMOL GONSALEZ NP May 20, 2017 16:04
[2017-05-20 20:41] VITALS: BP 136/73; RESP 18
--- NOTE | 2017-05-20 23:42 | PN ---
Date/Time of Note Date/Time of Note DATE: 05/20/17 TIME: 23:41 Assessment/Plan VTE Prophylaxis VTE Prophylaxis Intervention: SCD's Lines/Catheters [facility] Saline Lock Assessment/Plan Assessment/Plan [facility] 1. 71-year-old woman with a left ankle diabetic ulcer and deep cutaneous abscess , now s/p I&D for a second time again this morning by Dr. Cristino Moseley. No osteomyelitis on plain films or MRI. Tissue culture showing Strep agalactiae, sensitive to multiple antibiotics apart from penicillin and doxycycline. * Continue ceftriaxone * Will discontinue vancomycin, in light of sensitivities * ID Service recommended discharging on doxycycline and amoxicillin, but the cultured organism is resistant to doxycycline. * Repeat labs tomorrow AM * Per Dr. Moseley, anticipate discharge tomorrow. Will plan on 14 days of amoxicillin 500mg PO TID 2. Diabetes mellitus, with elevated HgbA1c of 9.1%. Likely worsened by infection, but well-controlled here in the hospital. * Close monitoring on Accuchecks qAC and qHS 3. Hypertension, well-controlled now. 4. Hyperlipidemia, with fasting lipid panel showed normal-range total cholesterol with only mildly elevated triglycerides. 5. Prophylaxis: SCDs for DVT prophylaxis, Pepcid for GI prophylaxis 6. Disposition: ID and podiatry consults. Discharge Sunday. Lazaro Abraham MD PhD [phone] Subjective 24 Hr Interval Summary Free Text/Dictation Feeling great today. Much better. Tolerated repeat I&D this morning, and has less discomfort now. No headache, dyspnea, cough, chest discomfort, dysuria or urethritis symptoms. Exam/Review of Systems Vital Signs Vitals Vital Signs Date Time Temp Pulse Resp B/P Pulse Ox O2 Delivery O2 Flow Rate FiO2 05/20/17 20:41 98.5 90 18 136/73 97 05/17/17 04:00 Room Air Intake and Output 05/19/17 05/19/17 05/20/17 15:00 23:00 07:00 Intake Total 150 ml 1450 ml 290 ml Balance 150 ml 1450 ml 290 ml Exam Constitutional: alert, oriented, well developed Psych: nl mood/affect, no complaints Head: EOMI, PERRL, nl conjunctiva, nl sclera, moist oral mucosa. Respiratory: clear to auscultation, normal air movement, no congested cough. Cardiovascular: nl pulses, regular rate and rhythm, no murmur. Gastrointestinal: bowel sounds, nl liver, spleen, non-tender, soft. Musculoskeletal: muscle tone, nl extremities to inspection, range of motion, normal pulses, left ankle bandaged. Intact sensation and strength distally, without pain on movement of the left ankle. Neurological: [employer] II-XII intact, nl mental status, nl speech, nl strength Skin: nl turgor Lymph: nl lymph nodes Results Result Diagram: 05/19/1760405/19/17604 Results 24 hrs Laboratory Tests Test 05/20/17 07:56 05/20/17 11:57 05/20/17 17:28 05/20/17 20:51 Bedside Glucose 149 155 128 165 Medications Medications Current Medications Acetaminophen (Tylenol Tab) 650 mg Q6 PRN PO FEVER GREATER THAN 100.6; Start 05/17/17 at 01:00 Acetaminophen/ Hydrocodone Bitart ([place] (5/325)) 1 tab Q6 PRN PO pain Last administered on 05/20/17 18:11; Admin Dose 1 TAB; Start 05/17/17 at 01:00 Ferrous Sulfate (Ferrous Sulfate (Ec)) 325 mg DAILY PO Last administered on 08:03; Admin Dose 325 MG; Start 05/17/17 at 09:00 Insulin Glargine (Lantus) 15 unit DAILY SC Last administered on 05/20/17 08: 00; Admin Dose 15 UNIT; Start 05/17/17 at 09:00 Diagnostic Test (Pha) (Accu-Chek) 1 ea 02 XX ; Start 05/17/17 at 02:00 Miscellaneous Information 1 ea NOTE XX ; Start 05/17/17 at 01:00 Glucose (Glutose) 15 gm Q15M PRN PO DECREASED GLUCOSE; Start 05/17/17 at 01:00 Glucose (Glutose) 22.5 gm Q15M PRN PO DECREASED GLUCOSE; Start 05/17/17 at 01: 00 Dextrose (D50w Syringe) 25 ml Q15M PRN IV DECREASED GLUCOSE; Start 05/17/17 at 01:00 Dextrose (D50w Syringe) 50 ml Q15M PRN IV DECREASED GLUCOSE; Start 05/17/17 at 01:00 Glucagon (Glucagen) 1 mg Q15M PRN IM DECREASED GLUCOSE; Start 05/17/17 at 01: 00 Glucose (Glutose) 15 gm Q15M PRN BUCCAL DECREASED GLUCOSE; Start 05/17/17 at 01:00 Lactobacillus Acidophilus/ Rhamnosus (Culturelle) 1 cap BID PO Last administered on 05/20/17 20:52; Admin Dose 1 CAP; Start 05/17/17 at 10:30 Enoxaparin Sodium (Lovenox) 40 mg DAILY SC Last administered on 05/20/17 08: 03; Admin Dose 40 MG; Start 05/17/17 at 12:30 Famotidine (Pepcid) 20 mg DAILY PO Last administered on 05/20/17 08:03; Admin Dose 20 MG; Start 05/17/17 at 12:30 Sodium Hypochlorite (Dakin'S (Dilute 1/40%)) 1 applic BID IRR Last administered on 05/20/17 20:52; Admin Dose 1 APPLIC; Start 05/18/17 at 09:00 Silver Sulfadiazine (Thermazene 1% 25 Gm) 1 applic BID TOP Last administered on 05/20/17 20:52; Admin Dose 1 APPLIC; Start 05/18/17 at 09:00 Morphine Sulfate 2 mg 2 mg Q4H PRN IV SEVERE PAIN LEVEL 7-10 Last administered on 05/19/17 17:57; Admin Dose 2 MG; Start 05/18/17 at 12:00 Vancomycin HCl 1.5 gm/Sodium Chloride 250 ml @ 83.333 mls/ hr Q24H IVPB Last administered on 05/20/17 13:40; Admin Dose 83.333 MLS/HR; Start 05/20/17 at 14:00 Ceftriaxone Sodium (Rocephin) 50 ml @ 100 mls/hr Q24H IVPB Last administered on 05/20/17 22:10; Admin Dose 100 MLS/HR; Start 05/19/17 at 22:30 CELESTINA ABRAHAM M.D. May 20, 2017 23:42
[2017-05-21] MEDS: HYDROCODONE/APAP (5/325) TAB PO PRN ×3 (00:04→13:50)
[2017-05-21] MEDS: ACCU-CHEK XX SCH (01:22)
[2017-05-21 02:45] VITALS: BP 110/55; RESP 18
[2017-05-21 08:00] VITALS: BP_SYST 110; BP_SYST 158; BP_DIAS 59; BP_DIAS 82; RESP 17; RESP 18
[2017-05-21] MEDS: INSULIN ASPART [NOVOLOG] 3 ML PEN SC SCH ×4 (08:08→11:36)
[2017-05-21] MEDS: FERROUS SULFATE (EC) 325 MG TAB PO SCH (08:31)
[2017-05-21] MEDS: LACTOBACILLUS RHAMNOSUS CAP PO SCH (08:31)
[2017-05-21] MEDS: FAMOTIDINE 20 MG TAB PO SCH (08:31)
[2017-05-21] MEDS: metFORMIN 500 MG TAB PO SCH ×2 (08:31→12:31)
[2017-05-21] MEDS: ENOXAPARIN 40 MG/0.4 ML SYG SC SCH (08:32)
[2017-05-21] MEDS: INSULIN GLARGINE [LANtus] 3 ML PEN SC SCH (08:32)
[2017-05-21] MEDS: SILVER SULFADIAZINE 1% 25 GM CR TOP SCH (08:32)
[2017-05-21] MEDS: SODIUM HYPOCHLORITE 1/40% 1L IRRIG IRR SCH (08:40)
[2017-05-21 11:14] LABS: BASOPHILS % 0.7 % (0.0-2.0); EOSINOPHILS # 0.2 10^3/ul (0.0-0.5); EOSINOPHILS % 2.9 % (0.0-7.0); HEMATOCRIT 31.1 % (37.0-47.0); HEMOGLOBIN 9.6 g/dl (12.0-16.0); LYMPHOCYTES # 1.5 10^3/ul (0.8-2.9); LYMPHOCYTES % 24.9 % (15.0-51.0); MEAN CORPUSCULAR HEMOGLOBIN 25.7 pg (29.0-33.0); MEAN CORPUSCULAR HGB CONC 30.9 g/dl (32.0-37.0); MEAN CORPUSCULAR VOLUME 83.4 fl (82.0-101.0); MEAN PLATELET VOLUME 8.2 fl (7.4-10.4); MONOCYTE # 0.4 10^3/ul (0.3-0.9); MONOCYTES % 6.5 % (0.0-11.0); NEUTROPHIL # 3.8 10^3/ul (1.6-7.5); NEUTROPHILS % 64.7 % (39.0-77.0); PLATELET COUNT 497 10^3/UL (140-415); RED BLOOD COUNT 3.73 10^6/ul (4.20-5.40); RED CELL DISTRIBUTION WIDTH 16.6 % (11.5-14.5); WHITE BLOOD COUNT 5.9 10^3/ul (4.8-10.8)
[2017-05-21 11:45] LABS: CALCIUM 9.6 mg/dl (8.4-10.2); CREATININE 0.86 mg/dl (0.44-1.00); POTASSIUM 5.2 mmol/L (3.5-5.1)
[2017-05-21] MEDS ORDERED: NA POLYST SULFON 15 GM/60 ML BTL PO ONE (12:00)
--- NOTE | 2017-05-21 12:02 | PN ---
DATE: 05/18/2017 SUBJECTIVE: Patient is awake, feels good, looks comfortable. Family at bedside. No fevers. LABORATORY DATA: WBC today 7.2 and no shift, no bands. BUN 16, creatinine 0.91, blood sugar 135. MICROBIOLOGY: Blood culture negative. DIAGNOSTICS: X-ray of the left ankle revealed loculated fluid collection, no osteomyelitis. ANTIMICROBIALS: The patient is on IV vancomycin and Levaquin. PHYSICAL EXAMINATION: GENERAL: Well-developed, elderly woman who is awake, in no distress. HEENT: Head atraumatic, normocephalic. Sclerae anicteric. Buccal mucosa pink. NECK: Supple. CHEST: Rise symmetrical. Breath sounds clear. HEART: S1, S2. ABDOMEN: Soft. Bowel tones present. EXTREMITIES: Left lower extremity dressing intact. There is slight edema and erythema. ASSESSMENT: 1. Left diabetic foot ulceration with evidence of fluid collection, no osteomyelitis. 2. Diabetes. 3. Hypertension. PLAN: Patient remains stable. She is being followed by Dr. Moseley who plans to do I and D. We candace l await for wound culture. Continue her on current antibiotics. Dictated By: MAE ALTMAN [employer] GONZALEZ/KRISTI Conf#: [id number] DID#: [id number]
[2017-05-21] MEDS: morphine 2 MG INJ IV PRN (12:58)
--- NOTE | 2017-05-21 16:35 | CONS ---
Date/Time of Note Date/Time of Note DATE: 05/21/17 TIME: 16:31 Consultation Date/Type/Reason Admit Date/Time May 17, 2017 at 00:27 Initial Consult Date SUBJECTIVE: 71 y/o female being treated for cellulitis of Lt ankle .Awake,alert.Feels good. Denies fever,pain. VS: 158/82 P: 75 R: 17 T: 97.7 SO2: 99% Micro: cx + Strep Abx: Vanco D/C today. Rocephin. PHYSICAL EXAMINATION: GENERAL: Alert, responsive, in no acute distress. SKIN: Without generalized rash. HEENT: Within normal limits. NECK: Supple. LYMPH NODES: None palpable. CHEST: Decreased breath sounds at the bases. HEART: Without murmur or gallop. ABDOMEN: Soft, nontender, +BT EXTREMITIES: LLE dsg intact NEUROLOGIC: No focal neurological abnormalities. Assessment: 1. L DFU, s/p i&d==> no OM per MRI 2. DM 3. HTN Plan: Pt. remains stable. Continue Rocephin. Anticipate D/C woth PO Doxycycline and Amoxicillin. F/u podiatry rec-s. Type of Consultation: ID Exam/Review of Systems Vital Signs Vitals Vital Signs Date Time Temp Pulse Resp B/P Pulse Ox O2 Delivery O2 Flow Rate FiO2 05/21/17 08:00 97.7 75 17 158/82 99 Intake and Output 05/20/17 05/20/17 05/21/17 14:59 22:59 06:59 Intake Total 1520 ml 800 ml Balance 1520 ml 800 ml Results Result Diagram: 05/21/17 1056 05/21/17 1056 Results 24 hrs Laboratory Tests Test 05/20/17 17:28 05/20/17 20:51 05/21/17 07:57 05/21/17 10:56 Bedside Glucose 128 165 150 White Blood Count 5.9 Red Blood Count 3.73 L Hemoglobin 9.6 L Hematocrit 31.1 L Mean Corpuscular Volume 83.4 Mean Corpuscular Hemoglobin 25.7 L Mean Corpuscular Hemoglobin Concent 30.9 L Red Cell Distribution Width 16.6 H Platelet Count 497 H Mean Platelet Volume 8.2 Neutrophils % 64.7 Lymphocytes % 24.9 Monocytes % 6.5 Eosinophils % 2.9 Basophils % 0.7 Nucleated Red Blood Cells % 0.0 Neutrophils # 3.8 Lymphocytes # 1.5 Monocytes # 0.4 Eosinophils # 0.2 Basophils # 0.0 Nucleated Red Blood Cells # 0.0 Sodium Level 140 Potassium Level 5.2 H Chloride Level 107 Carbon Dioxide Level 25 Anion Gap 13 Blood Urea Nitrogen 12 Creatinine 0.86 Glucose Level 226 H Calcium Level 9.6 Test 05/21/17 11:30 Bedside Glucose 216 Medications Medications Current Medications Acetaminophen (Tylenol Tab) 650 mg Q6 PRN PO FEVER GREATER THAN 100.6; Start 05/17/17 at 01:00 Acetaminophen/ Hydrocodone Bitart ([place] (5/325)) 1 tab Q6 PRN PO pain Last administered on 05/21/17 13:50; Admin Dose 1 TAB; Start 05/17/17 at 01:00 Ferrous Sulfate (Ferrous Sulfate (Ec)) 325 mg DAILY PO Last administered on 08:31; Admin Dose 325 MG; Start 05/17/17 at 09:00 Insulin Glargine (Lantus) 15 unit DAILY SC Last administered on 05/21/17 08: 32; Admin Dose 15 UNIT; Start 05/17/17 at 09:00 Diagnostic Test (Pha) (Accu-Chek) 1 ea 02 XX ; Start 05/17/17 at 02:00 Miscellaneous Information 1 ea NOTE XX ; Start 05/17/17 at 01:00 Glucose (Glutose) 15 gm Q15M PRN PO DECREASED GLUCOSE; Start 05/17/17 at 01:00 Glucose (Glutose) 22.5 gm Q15M PRN PO DECREASED GLUCOSE; Start 05/17/17 at 01: 00 Dextrose (D50w Syringe) 25 ml Q15M PRN IV DECREASED GLUCOSE; Start 05/17/17 at 01:00 Dextrose (D50w Syringe) 50 ml Q15M PRN IV DECREASED GLUCOSE; Start 05/17/17 at 01:00 Glucagon (Glucagen) 1 mg Q15M PRN IM DECREASED GLUCOSE; Start 05/17/17 at 01: 00 Glucose (Glutose) 15 gm Q15M PRN BUCCAL DECREASED GLUCOSE; Start 05/17/17 at 01:00 Lactobacillus Acidophilus/ Rhamnosus (Culturelle) 1 cap BID PO Last administered on 05/21/17 08:31; Admin Dose 1 CAP; Start 05/17/17 at 10:30 Enoxaparin Sodium (Lovenox) 40 mg DAILY SC Last administered on 05/21/17 08: 32; Admin Dose 40 MG; Start 05/17/17 at 12:30 Famotidine (Pepcid) 20 mg DAILY PO Last administered on 05/21/17 08:31; Admin Dose 20 MG; Start 05/17/17 at 12:30 Sodium Hypochlorite (Dakin'S (Dilute 1/40%)) 1 applic BID IRR Last administered on 05/20/17 20:52; Admin Dose 1 APPLIC; Start 05/18/17 at 09:00 Silver Sulfadiazine (Thermazene 1% 25 Gm) 1 applic BID TOP Last administered on 05/20/17 20:52; Admin Dose 1 APPLIC; Start 05/18/17 at 09:00 Morphine Sulfate 2 mg 2 mg Q4H PRN IV SEVERE PAIN LEVEL 7-10 Last administered on 05/21/17 12:58; Admin Dose 2 MG; Start 05/18/17 at 12:00 Ceftriaxone Sodium (Rocephin) 50 ml @ 100 mls/hr Q24H IVPB Last administered on 05/20/17 22:10; Admin Dose 100 MLS/HR; Start 05/19/17 at 22:30 SYDNI KITCHEN May 21, 2017 16:35
--- NOTE | 2017-05-21 16:49 | PN ---
Date/Time of Note Date/Time of Note DATE: 05/21/17 TIME: 16:43 Assessment/Plan VTE Prophylaxis VTE Prophylaxis Intervention: LMWH Lines/Catheters IV Catheter Type (from Nrsg): Saline Lock Assessment/Plan Assessment/Plan 71-year-old female: 1. Left ankle diabetic ulcer, infected, adjacent cellulitis. MRI left ankle with no osteomyelitis however but patient had fluid collection/ abscess underneath the infected ulcer that required I&D on 05/18. POD#3 Doing well malissa OK to d/c home today per ID and Podiatry D/c home on Amoxicillin 500 mg po q8 x 14 days 2. Diabetes mellitus, A1c of 9.1, patient reports that her blood sugars have been running high over the past couple of weeks with ongoing infection. Continue current regimen, pre-meal insulin has been added. Continue home meds. 3. Hypertension, monitor blood pressure, Continue outpatient medications. 4. Hyperlipidemia: Continue statin therapy. Prophylaxis: Lovenox for DVT prophylaxis, Pepcid for GI prophylaxis Disposition: Appreciate ID and podiatry recommendations, will d/c home with Home Health for wound care and po abx. Subjective 24 Hr Interval Summary Free Text/Dictation Patient doing well D?c home today with po abx and Home Health for wound care Exam/Review of Systems Vital Signs Vitals Vital Signs Date Time Temp Pulse Resp B/P Pulse Ox O2 Delivery O2 Flow Rate FiO2 05/21/17 08:00 97.7 75 17 158/82 99 Intake and Output 05/20/17 05/20/17 05/21/17 15:00 23:00 07:00 Intake Total 1520 ml 800 ml Balance 1520 ml 800 ml Exam Constitutional: alert, oriented, well developed Respiratory: clear to auscultation, normal air movement Cardiovascular: nl pulses, regular rate and rhythm Gastrointestinal: non-tender, soft Musculoskeletal: other (LLE with dressing in place ) Extremities: normal pulses Neurological: ROOFING SUBCONTRACTOR II-XII intact, nl mental status, nl speech, nl strength Results Result Diagram: 05/21/17 1056 05/21/17 1056 Results 24 hrs Laboratory Tests Test 05/20/17 17:28 05/20/17 20:51 05/21/17 07:57 05/21/17 10:56 Bedside Glucose 128 165 150 White Blood Count 5.9 Red Blood Count 3.73 L Hemoglobin 9.6 L Hematocrit 31.1 L Mean Corpuscular Volume 83.4 Mean Corpuscular Hemoglobin 25.7 L Mean Corpuscular Hemoglobin Concent 30.9 L Red Cell Distribution Width 16.6 H Platelet Count 497 H Mean Platelet Volume 8.2 Neutrophils % 64.7 Lymphocytes % 24.9 Monocytes % 6.5 Eosinophils % 2.9 Basophils % 0.7 Nucleated Red Blood Cells % 0.0 Neutrophils # 3.8 Lymphocytes # 1.5 Monocytes # 0.4 Eosinophils # 0.2 Basophils # 0.0 Nucleated Red Blood Cells # 0.0 Sodium Level 140 Potassium Level 5.2 H Chloride Level 107 Carbon Dioxide Level 25 Anion Gap 13 Blood Urea Nitrogen 12 Creatinine 0.86 Glucose Level 226 H Calcium Level 9.6 Test 05/21/17 11:30 Bedside Glucose 216 Medications Medications Current Medications Acetaminophen (Tylenol Tab) 650 mg Q6 PRN PO FEVER GREATER THAN 100.6; Start 05/17/17 at 01:00 Acetaminophen/ Hydrocodone Bitart ([place] (5/325)) 1 tab Q6 PRN PO pain Last administered on 05/21/17 13:50; Admin Dose 1 TAB; Start 05/17/17 at 01:00 Ferrous Sulfate (Ferrous Sulfate (Ec)) 325 mg DAILY PO Last administered on 08:31; Admin Dose 325 MG; Start 05/17/17 at 09:00 Insulin Glargine (Lantus) 15 unit DAILY SC Last administered on 05/21/17 08: 32; Admin Dose 15 UNIT; Start 05/17/17 at 09:00 Diagnostic Test (Pha) (Accu-Chek) 1 ea 02 XX ; Start 05/17/17 at 02:00 Miscellaneous Information 1 ea NOTE XX ; Start 05/17/17 at 01:00 Glucose (Glutose) 15 gm Q15M PRN PO DECREASED GLUCOSE; Start 05/17/17 at 01:00 Glucose (Glutose) 22.5 gm Q15M PRN PO DECREASED GLUCOSE; Start 05/17/17 at 01: 00 Dextrose (D50w Syringe) 25 ml Q15M PRN IV DECREASED GLUCOSE; Start 05/17/17 at 01:00 Dextrose (D50w Syringe) 50 ml Q15M PRN IV DECREASED GLUCOSE; Start 05/17/17 at 01:00 Glucagon (Glucagen) 1 mg Q15M PRN IM DECREASED GLUCOSE; Start 05/17/17 at 01: 00 Glucose (Glutose) 15 gm Q15M PRN BUCCAL DECREASED GLUCOSE; Start 05/17/17 at 01:00 Lactobacillus Acidophilus/ Rhamnosus (Culturelle) 1 cap BID PO Last administered on 05/21/17 08:31; Admin Dose 1 CAP; Start 05/17/17 at 10:30 Enoxaparin Sodium (Lovenox) 40 mg DAILY SC Last administered on 05/21/17 08: 32; Admin Dose 40 MG; Start 05/17/17 at 12:30 Famotidine (Pepcid) 20 mg DAILY PO Last administered on 05/21/17 08:31; Admin Dose 20 MG; Start 05/17/17 at 12:30 Sodium Hypochlorite (Dakin'S (Dilute 1/40%)) 1 applic BID IRR Last administered on 05/20/17 20:52; Admin Dose 1 APPLIC; Start 05/18/17 at 09:00 Silver Sulfadiazine (Thermazene 1% 25 Gm) 1 applic BID TOP Last administered on 05/20/17 20:52; Admin Dose 1 APPLIC; Start 05/18/17 at 09:00 Morphine Sulfate 2 mg 2 mg Q4H PRN IV SEVERE PAIN LEVEL 7-10 Last administered on 05/21/17 12:58; Admin Dose 2 MG; Start 05/18/17 at 12:00 Ceftriaxone Sodium (Rocephin) 50 ml @ 100 mls/hr Q24H IVPB Last administered on 05/20/17 22:10; Admin Dose 100 MLS/HR; Start 05/19/17 at 22:30 IVY SHIPMAN May 21, 2017 16:49
--- NOTE | 2017-05-21 16:52 | PDOCDIS ---
Discharge Instructions CONDITION Patient Condition: Stable HOME CARE INSTRUCTIONS: Special Diet: 2000 RIANA DIET ACTIVITY: Activity Restrictions: Slowly Increase Activity Partial Weight Bearing (LLE ) FOLLOW UP/APPOINTMENTS Follow-up Plan Follow up with PCP within 1 week Follow up with Home Health for wound care Follow up with Podiatry within 1 week IVY SHIPMAN May 21, 2017 16:52
[2017-05-21] MEDS ORDERED: HYDR-3498 PO (17:03)
[2017-05-21] MEDS ORDERED: SODI473S19 IRR ×2 (17:03→17:11)
[2017-05-21] MEDS ORDERED: SILV25CR7 TOP ×2 (17:03→17:11)
[2017-05-21] MEDS ORDERED: LACT1CAP28 PO (17:03)
[2017-05-21] MEDS ORDERED: AMOX500C2 PO (17:06)
== END 2017-05-21 17:48 | disposition home health service (06) | DRG 638 ==
LOC: E/R 14:32 → PP2 05-17 00:27
PROVIDERS: ADMIT Internal Medicine; ATTEND Internal Medicine
PROC: 0Y9L0ZZ Drainage of Left Ankle Region, Open Approach (ICD-10-PCS; principal; 2017-05-19)
DX: E11.621 Type 2 diabetes mellitus with foot ulcer (principal); L03.116 Cellulitis of left lower limb; L97.529 Non-pressure chronic ulcer of other part of left foot with unspecified severity; L02.416 Cutaneous abscess of left lower limb; I10 Essential (primary) hypertension; E78.5 Hyperlipidemia, unspecified; Z79.4 Long term (current) use of insulin; Z90.710 Acquired absence of both cervix and uterus
CPT/HCPCS: 36415; 73610; 73721; 80048; 80053; 80061; 80202; 81003; 82962; 83036; 83735; 84100; 85025; 85651; 87040; 87070; 90686; 96374; 96375; J0696; J1650; J1815; J1956; J2270; J2543; J3370; J7030; J7050